=== PATIENT | female | born 1955 | race African-American/Black ===

== ENCOUNTER 2018-03-29 22:59 | Emergency (ER) | payer BC, OTHER ==
[~2018-03-29] VITALS: Ht 162.6 cm; Wt 96.2 kg
[~2018-03-29 22:59] MED LIST: BUPROPION HCL150 M1 PO; DOXYCYCLINE 10100 MG PO; EMERGEN-C ELEC1 EACH PO; ERGOCALCIF50000 UNIT PO; HYDROXYZINE HCL25 M1 PO; IRON18 M1 PO; LISINOPRIL2.5 MG PO; LOSARTAN POTAS100 MG PO; OXYBUTYNIN 5 MG5 M2 PO; PREDNISONE 20 M20 M1 PO; PROTONIX40 M1 PO; PROZAC 20 MG20 MG PO; SINGULAIR 10 MG10 M1 PO; SYMBICORT80 MCG/4.1 INH; TESSALON PERLE100 M1 PO; TESSALON PERLE100 MG PO; VENTOLIN HFA 1818 GM INH; XOPENEX HFA15 GM IH; ZYRTEC10 M2 PO; [UNRECOGNIZED DRUG - OTHER] PO
[2018-03-30] MEDS ORDERED: PREDNISONE 20 M20 MG PO (02:04)
== END 2018-03-30 02:25 | disposition home or self-care (01) ==
LOC: ER 22:59
DX: J45.901 Unspecified asthma with (acute) exacerbation (principal); R11.10 Vomiting, unspecified; M79.7 Fibromyalgia; F32.9 Major depressive disorder, single episode, unspecified; I10 Essential (primary) hypertension; K21.9 Gastro-esophageal reflux disease without esophagitis; G47.30 Sleep apnea, unspecified; K76.0 Fatty (change of) liver, not elsewhere classified; Z86.2 Personal history of diseases of the blood and blood-forming organs and certain disorders involving the immune mechanism; Z88.8 Allergy status to other drugs, medicaments and biological substances; Z98.890 Other specified postprocedural states

== ENCOUNTER → 2020-12-17 | Outpatient (CLI) | payer BC, OTHER ==
[~2020-12-17] MED LIST changes: +PREDNISONE 20 M20 MG PO
== END ==
LOC: RAD 13:26
PROVIDERS: ATTEND Internal Medicine
DX: J98.4 Other disorders of lung (principal); J45.50 Severe persistent asthma, uncomplicated